=== PATIENT | male | born 1960 | race Caucasian/White ===

== ENCOUNTER 2019-04-04 13:18 | Emergency (ER) | payer OTHER ==
[~2019-04-04] VITALS: Ht 188 cm; Wt 80.7 kg
--- NOTE | 2019-04-04 13:42 | NUR ---
Patient discharged to home in stable conditon. Written and verbal after care instructions given. Patient verbalizes understanding of instructions.
== END 2019-04-04 13:55 | disposition home or self-care (01) ==
LOC: ER 13:18
DX: L03.115 Cellulitis of right lower limb (principal); R25.3 Fasciculation; E11.9 Type 2 diabetes mellitus without complications
CPT/HCPCS: A4663